=== PATIENT | female | born 1980 | race American Indian/Alaskan Native ===

== ENCOUNTER 2016-10-04 10:41 | Inpatient (IN) | payer OTHER ==
--- NOTE | 2016-10-04 10:56 | Emergency Department Report ---
Chief Complaint: Dizziness Stated Complaint: DIZZINESS Time Seen by Provider: 10/04/16 10:55 - HPI History of Present Illness: Patient here complaining of dizziness for 1 week. She says she's having headache to the front of her head and has a history of high blood pressure. She said the headache feels like stabbing pain she is also having mid chest pain that feels tight and pain is 8 out of 10. She reports that she is having slight blurred vision. She says headache is 9 out of 10 and is constant since yesterday. Denies any nausea vomiting. She said that she does not have a primary care physician. Patient is on labetalol and nifedipine and she says she took both medication this morning. History of asthma and high blood pressure. - ROS Review of Systems: All systems are negative unless stated in HPI above - Exam Vital Signs: Vital Signs 10/04/16 10:44 Temperature 98.4 F Pulse Rate 86 Respiratory 20 Rate Blood Pressure 232/148 O2 Sat by Pulse 100 Oximetry Physical Exam: General: This is a 36-year-old female . Morbidly obese . nontoxic in appearance. Mini-Neuro: GCS of 15, speech is clear and fluid. Negative pronator drift, negative Romberg. Patient alert and oriented 3. No facial drooping noted. CV:BP Pressure is 232/148. regular rate and rhythm. S1-S2. MSE screening note: Focused history and physical exam performed. Due to findings the following was ordered:see [facility] ED Medical Decision Making - Medical Decision Making Medical decision making: Patient seen by provider in triage area. Appropriate protocol activated and patient to main ED to be seen by physician. ED Disposition for MSE Condition: Stable
[2016-10-04] MEDS ORDERED: CATAPRES PO ONE (11:04)
[2016-10-04 11:37] LABS: Basophils % (Auto) 0.7 % (0.0-1.8); Eosinophils % (Auto) 1.7 % (0.0-4.3); Hematocrit 36.5 % (30.3-42.9); Hemoglobin 11.6 gm/dl (10.1-14.3); Mean Corpuscular HGB Conc 32 % (30-34); Mean Corpuscular Volume 79 fl (79-97); Platelet Count 320 K/mm3 (140-440); Red Blood Count 4.65 M/mm3 (3.65-5.03); Red Cell Distribution Width 15.1 % (13.2-15.2); White Blood Count 4.7 K/mm3 (4.5-11.0)
[2016-10-04 11:48] LABS: Partial Thromboplastin Time 29.7 Sec. (24.2-36.6)
[2016-10-04 11:52] LABS: Creatine Kinase MB 2.9 ng/mL (0.0-4.0)
[2016-10-04 11:53] LABS: Creatine Kinase 193 units/L (30-135)
[2016-10-04 11:54] LABS: Alanine Aminotransferase 12 units/L (7-56); Albumin 3.9 g/dL (3.9-5); Albumin/Globulin Ratio 1.1 %; Alkaline Phosphatase 89 units/L (35-129); Anion Gap 17 mmol/L; Bilirubin,Total 0.3 mg/dL (0.1-1.2); Blood Urea Nitrogen 14 mg/dL (7-17); Calcium 8.7 mg/dL (8.4-10.2); Carbon Dioxide 26 mmol/L (22-30); Chloride 100.9 mmol/L (98-107); Glucose 100 mg/dL (65-100); Potassium 4.1 mmol/L (3.6-5.0); Sodium 140 mmol/L (137-145); Total Protein 7.6 g/dL (6.3-8.2)
[2016-10-04 12:00] LABS: Mean Corpuscular Hemoglobin 25 pg (28-32)
--- NOTE | 2016-10-04 12:21 | Cat Scan Report ---
CT HEAD WITHOUT CONTRAST: HISTORY: Headache. Serial contiguous axial images were obtained through the cranium. Intravenous contrast material was not administered. The ventricles are normal in size and appearance. There is no mass effect or midline shift. No areas of abnormally increased or decreased attenuation are seen. No mass lesion is seen. The mastoid air cells and visualized portions of the sinuses are normal. IMPRESSION: Cranial CT scan within normal limits.
--- NOTE | 2016-10-04 12:21 | XRay Report ---
CHEST XRAY, 2 VIEWS: History: Chest pain. Findings: Two views of the chest demonstrate the mediastinal contour to be of normal size and shape. The heart is enlarged. The lungs are clear and fully expanded, and the soft tissues and bony structures are normal. IMPRESSION: Mild cardiomegaly. Lungs clear.
--- NOTE | 2016-10-04 13:00 | Emergency Department Report ---
ED General Adult HPI - General Chief complaint: Dizziness Stated complaint: DIZZINESS Time Seen by Provider: 10/04/16 10:55 Source: patient Mode of arrival: Ambulatory Limitations: No Limitations - History of Present Illness Initial comments: Patient complained of vague dizziness but not vertigo for one week. She states that she is compliant with her medication for hypertension. She does not complain of any focal weakness or numbness. Apparently she complained of some chest pain to the primary nurse on secondary assessment. However she denied this with me. She is not complaining of shortness of breath either.denies any focal weakness or numbness.she states the chest pain that she had was primarily on exertion. It is not currently present. She also has had some dyspnea on exertion. The patient was admitted to this facility under similar circumstances. She had a Walter protocol which was negative. She did not have a nuclear perfusion study. -: week(s) Location: back Radiation: non-radiation Quality: aching Consistency: intermittent, now resolved Improves with: none Worsens with: none Associated Symptoms: shortness of breath Treatments Prior to Arrival: none - Related Data Previous Rx's Medication Instructions Recorded Last Taken Type Labetalol [Normodyne TAB] 400 mg PO TID #60 tablet 12/25/15 Unknown Rx NIFEdipine XL [Procardia Xl] 60 mg PO QDAY #30 tablet 12/25/15 Unknown Rx Allergies Allergy/AdvReac Type Severity Reaction Status Date / Time pineapple Allergy Swelling Verified 05/26/16 07:53 salmon Allergy Swelling Uncoded 05/26/16 07:53 ED Review of Systems ROS: Stated complaint: DIZZINESS Other details as noted in HPI Constitutional: denies: chills, fever Eyes: denies: eye pain, eye discharge, vision change ENT: denies: ear pain, throat pain Respiratory: SOB with exertion. denies: cough, shortness of breath, wheezing Cardiovascular: chest pain. denies: palpitations Endocrine: no symptoms reported Gastrointestinal: denies: abdominal pain, nausea, diarrhea Genitourinary: denies: urgency, dysuria, discharge Musculoskeletal: denies: back pain, joint swelling, arthralgia Skin: denies: rash, lesions Neurological: denies: headache, weakness, paresthesias Psychiatric: denies: anxiety, depression Hematological/Lymphatic: denies: easy bleeding, easy bruising ED Past Medical Hx - Past Medical History Previous Medical History?: Yes Hx Hypertension: Yes Hx Asthma: Yes - Surgical History Past Surgical History?: Yes Additional Surgical History: D&C - Social History Smoking Status: Never Smoker Substance Use Type: None - Medications Home Medications: Home Medications Medication Instructions Recorded Confirmed Last Taken Type Labetalol [Normodyne TAB] 400 mg PO TID #60 tablet 12/25/15 10/04/16 Unknown Rx NIFEdipine XL [Procardia Xl] 60 mg PO QDAY #30 tablet 12/25/15 10/04/16 Unknown Rx ED Physical Exam - General Limitations: No Limitations General appearance: alert, in no apparent distress - Head Head exam: Present: atraumatic, normocephalic - Eye Eye exam: Present: normal appearance, PERRL, EOMI. Absent: scleral icterus - ENT ENT exam: Present: mucous membranes moist - Neck Neck exam: Present: normal inspection - Respiratory Respiratory exam: Present: normal lung sounds bilaterally. Absent: respiratory distress - Cardiovascular Cardiovascular Exam: Present: regular rate, normal rhythm. Absent: systolic murmur, diastolic murmur, rubs, gallop - GI/Abdominal GI/Abdominal exam: Present: soft, normal bowel sounds. Absent: distended, tenderness, guarding, rebound, rigid - Extremities Exam Extremities exam: Present: normal inspection - Back Exam Back exam: Present: normal inspection - Neurological Exam Neurological exam: Present: alert, oriented X3, CN II-XII intact, normal gait, other (ields were equal by confrontation cerebellar testing was normal.). Absent: motor sensory deficit - Psychiatric Psychiatric exam: Present: normal affect, normal mood - Skin Skin exam: Present: warm, dry, intact, normal color. Absent: rash ED Course Vital Signs 10/04/16 10/04/16 10/04/16 10:44 11:11 12:22 Temperature 98.4 F Pulse Rate 86 86 Respiratory 20 Rate Blood Pressure 232/148 232/140 Blood Pressure [Left] O2 Sat by Pulse 100 98 Oximetry 10/04/16 10/04/16 10/04/16 12:32 12:33 13:01 Temperature Pulse Rate 69 68 Respiratory 18 18 20 Rate Blood Pressure 174/111 Blood Pressure 183/119 [Left] O2 Sat by Pulse 97 97 96 Oximetry 10/04/16 10/04/16 10/04/16 13:13 14:01 14:07 Temperature Pulse Rate 64 70 Respiratory 20 15 Rate Blood Pressure 180/110 175/99 175/99 Blood Pressure [Left] O2 Sat by Pulse 94 100 Oximetry 10/04/16 10/04/16 10/04/16 14:11 15:01 15:55 Temperature Pulse Rate 64 56 L Respiratory 19 Rate Blood Pressure 175/99 169/88 169/88 Blood Pressure [Left] O2 Sat by Pulse 97 98 Oximetry 10/04/16 10/04/16 10/04/16 16:01 18:59 19:00 Temperature Pulse Rate Respiratory Rate Blood Pressure 166/100 166/100 180/110 Blood Pressure [Left] O2 Sat by Pulse 99 98 99 Oximetry ED Medical Decision Making - Lab Data Result diagrams: 10/04/16 11:23 10/04/16 11:23 - EKG Data -: EKG Interpreted by Me EKG shows normal: sinus rhythm, axis, intervals, QRS complexes - EKG Data Interpretation: other (somewhat prolnged QT SUKH) - Radiology Data Radiology results: report reviewed ( x-ray mild cardiomegaly CT the head no acute intracranial process) Critical care attestation.: If time is entered above; I have spent that time in minutes in the direct care of this critically ill patient, excluding procedure time. ED Disposition Clinical Impression: Accelerated hypertension, Chest pain Disposition: OP ADMITTED IP TO THIS HOSP Is pt being admited?: Yes Does the pt Need Aspirin: Yes Condition: Stable Time of Disposition: 20:24
[2016-10-04] MEDS ORDERED: ASPIRIN PO ONE (13:42)
[2016-10-04] MEDS ORDERED: NITRO-BID 2% TP ONE (13:42)
[2016-10-04] MEDS ORDERED: NITROSTAT SL PRN (14:41)
[2016-10-04] MEDS ORDERED: SODIUM CHLORIDE FLUSH SYRINGE 10 ML IV PRN (14:41)
[2016-10-04] MEDS ORDERED: BABY ASPIRIN PO STA (14:50)
[2016-10-04] MEDS ORDERED: D5/0.45NS 1,000 ML IV SCH (15:00)
[2016-10-04 16:25] LABS: Creatine Kinase MB 2.7 ng/mL (0.0-4.0)
[2016-10-04 16:26] LABS: Alanine Aminotransferase 12 units/L (7-56); Albumin 3.7 g/dL (3.9-5); Albumin/Globulin Ratio 1.1 %; Alkaline Phosphatase 84 units/L (35-129); BUN/Creatinine Ratio 15.55; Bilirubin,Total 0.2 mg/dL (0.1-1.2); Blood Urea Nitrogen 14 mg/dL (7-17); Calcium 8.7 mg/dL (8.4-10.2); Carbon Dioxide 25 mmol/L (22-30); Chloride 100.2 mmol/L (98-107); Creatine Kinase 173 units/L (30-135); Glucose 94 mg/dL (65-100); Potassium 3.9 mmol/L (3.6-5.0); Sodium 138 mmol/L (137-145); Total Protein 7.2 g/dL (6.3-8.2)
[2016-10-04 16:33] LABS: Anion Gap 17 mmol/L
[2016-10-04] MEDS: LOVENOX SUB-Q SCH (16:37)
[2016-10-04] MEDS: PROCARDIA XL PO SCH (16:37)
[2016-10-04 18:36] LABS: Creatine Kinase 157 units/L (30-135)
[2016-10-04 19:44] LABS: Creatine Kinase MB 2.6 ng/mL (0.0-4.0)
[2016-10-04] MEDS: NORMODYNE PO SCH (20:14)
[2016-10-04 20:46] LABS: Bilirubin,Urine NEG (Negative); Blood,Urine LG (Negative); Ketones,Urine NEG (Negative); Leukocyte Esterase,Urine NEG (Negative); Nitrite,Urine NEG (Negative); Urobilinogen,Urine < 2.0 mg/dL (<2.0)
[2016-10-04 20:53] LABS: RBC,Urine > 182.0 /HPF (0.0-6.0)
[2016-10-04] MEDS: MORPHINE IV PRN (22:05)
--- NOTE | 2016-10-04 23:38 | History and Physical Report ---
History of Present Illness Date of examination: 10/04/16 Date of admission: 10/04/16 14:35 Chief complaint: Chest pain, hypertension. History of present illness: Patient is a 36-year-old lady who has a history of hypertension and walked up in this was before chest pain about 3 months ago presented with retrosternal chest pain. No telemetry. Also normal. Progressively got worse for which she came to the emergency department. Repeat chest x-ray was unremarkable for any acute event. CT scan of the lungs was unremarkable for any acute event. Past History Past Medical History: hypertension, other Past Surgical History: denies: bowel surgery, Other Social history: single, smoking (quit smoking 2 days ago. She does smokes 1 year pack.) Family history: CAD, hypertension Medications and Allergies Allergies Allergy/AdvReac Type Severity Reaction Status Date / Time pineapple Allergy Swelling Verified 05/26/16 07:53 salmon Allergy Swelling Uncoded 05/26/16 07:53 Home Medications Medication Instructions Recorded Confirmed Last Taken Type Labetalol [Normodyne TAB] 400 mg PO TID #60 tablet 12/25/15 10/04/16 Unknown Rx NIFEdipine XL [Procardia Xl] 60 mg PO QDAY #30 tablet 12/25/15 10/04/16 Unknown Rx Active Meds: Active Medications Enoxaparin Sodium (Lovenox) 40 mg SUB-Q QDAY [facility] Last Admin: 10/04/16 16:37 Dose: 40 mg Dextrose/Sodium Chloride (D5/0.45ns) 1,000 mls @ 125 mls/hr IV DIRECT [facility] Labetalol HCl (Normodyne) 400 mg PO TID [facility] Morphine Sulfate (Morphine) 2 mg IV Q4H PRN PRN Reason: Pain, Moderate (4-6) Nifedipine (Procardia Xl) 60 mg PO QDAY [facility] Last Admin: 10/04/16 16:37 Dose: 60 mg Nitroglycerin (Nitrostat) 0.4 mg SL Q5M PRN PRN Reason: Chest Pain Sodium Chloride (Sodium Chloride Flush Syringe 10 Ml) 10 ml IV PRN PRN PRN Reason: LINE FLUSH Review of Systems Constitutional: no anorexia, no fatigue, no weakness Ears, nose, mouth and throat: no ear pain, no ear discharge, no tinnitis, no decreased hearing Cardiovascular: chest pain, no palpitations, no lightheadedness, no shortness of breath Respiratory: no cough, no cough with sputum, no excessive sputum, no hemoptysis Exam - Constitutional Vitals: Temp Pulse Resp BP Pulse Ox 98.4 F 56 L 19 180/110 100 10/04/16 10:44 10/04/16 15:01 10/04/16 15:01 10/04/16 19:00 10/04/16 22:27 General appearance: Present: no acute distress, mild distress - EENT Eyes: Present: PERRL, EOM intact ENT: hearing intact - Neck Neck: Present: supple - Respiratory Respiratory: bilateral: CTA - Cardiovascular Rhythm: regular Heart Sounds: Present: S1 & S2 - Extremities Extremities: no ischemia, pulses intact - Abdominal General gastrointestinal: Present: soft, non-tender, non-distended - Integumentary Integumentary: Absent: clear - Psychiatric Psychiatric: no appropriate mood/affect - Neurologic Neurologic: no CNII-XII intact Results - Labs CBC & Chem 7: 10/04/16 11:23 10/04/16 11:23 Labs: Abnormal lab results 10/04/16 10/04/16 Range/Units 17:43 19:00 Total Creatine Kinase 157 H (30-135) units/L Urine WBC (Auto) 16.0 H (0.0-6.0) /HPF Assessment and Plan - Patient Problems (1) Chest pain Diagnosis Date: 10/04/16 Current Visit: Yes Status: Acute Qualifiers: Chest pain type: chest pain due to myocardial ischemia Qualified Code(s): I20.9 - Angina pectoris, unspecified Plan to address problem: Commence patient on aspirin, oxygen, morphine,atorvastatin, Nuclear scan (2) Accelerated hypertension Diagnosis Date: 10/04/16 Current Visit: Yes Status: Acute Plan to address problem: Optimize blood pressure control with is beta matthew . Associated on compliance (3) Cardiomegaly Diagnosis Date: 10/04/16 Current Visit: Yes Status: Acute (4) Noncompliance Diagnosis Date: 10/04/16 Current Visit: No Status: Acute Plan to address problem: Counseling noncompliance done
[2016-10-05 00:38] LABS: Creatine Kinase MB 2.1 ng/mL (0.0-4.0)
[2016-10-05 00:39] LABS: Creatine Kinase 132 units/L (30-135)
--- NOTE | 2016-10-05 03:32 | Admit Criteria Form ---
Admission Criteria Documentation: CHEST PAIN Clinical Indications for Admission to Inpatient Care (Place 'X' for any and all applicable criteria): Admission is indicated for chest pain and ANY ONE of the following(1)(2)(3)(4)(5 ): [ ]I. Angina with acute coronary syndrome (Also use Myocardial Infarction or Angina guideline) [ ]II. Hemodynamic instability [ ]III. Angina needing acute intervention as indicated by ALL of the following( 11)(12): [ ]a) Unstable angina is present as indicated by angina that is ANY ONE of the following: [ ]i) New onset [ ]ii) Nocturnal [ ]iii) Prolonged at rest [ ]iv) Progressive [ ]b) Angina warrants acute intervention as indicated by ANY ONE of the following: [ ]i) Recurrent angina (e.g, not responding as previously to treatment) [ ]ii) Angina at rest or with low-level activities despite initial medical therapy [ ]iii) New or presumably new ST-segment depression on ECG [ ]iv) Signs or symptoms of heart failure (eg, dyspnea, pulmonary edema) [ ]v) New or worsening mitral regurgitation [ ]vi) Hemodynamic instability [ ]vii) Dangerous arrhythmia (eg, sustained ventricular tachycardia) [ ]viii) History of percutaneous coronary intervention within 6 months [ ]ix) History of coronary artery bypass graft surgery [ ]x) PERNELL risk score of 2 or greater[A] [ ]xi) History of Diabetes(14) [ ]xii) High-risk cardiac ischemia findings on noninvasive testing (e.g, echocardiogram, treadmill testing, nuclear scan) [ ]xiii) Chronic renal insufficiency (ie, estimated GFR less than 60 mL/min/1.732m) [ ]xiv) Left ventricular ejection fraction less than 40% [ ]IV. Evidence of SD (eg, cardiac biomarkers positive, ST-segment elevation on ECG) also use Myocardial Infarction Criteria Form. [ ]V. Pulmonary edema [ ]. Respiratory distress [ ]VII. Chest pain indicative of serious diagnosis other than coronary artery disease (eg, aortic dissection) [ ]VIII. Contraindications and/or Inappropriate clinical situations for Observational Care in patients with Chest Pain, when ANY ONE of the following is required: [ ]a) Patient with risk factor for pulmonary embolism, acute coronary syndrome and myocardial infarction (18) [ ]b) Patient with Pulmonary embolism require an average LOS of 4.3 days, therefore emergency department observation management is inappropriate 18,23 [ ]c) Painful condition/s in the elderly, have the highest rate of recidivism after emergency department observation management (10.8%) 20,21,22 [ ]d) Elevated cardiac biomarker requires intensive and exhaustive care (19) [ X]IX. General contraindications and/or Inappropriate clinical situations for Observational Care in patients with Chest Pain, when ANY ONE of the following is required: [ ]a) Prediction of prolongation of LOS based on ANY ONE of the following may be considered as a contraindication for observational care 2, 3, 4, 5, 6, 7, 8, 9, 10, 11 [ ]i) Age > 65 yrs. [ ]ii) Patient arriving by ambulance [ ]iii) Patient with high acuity [ ]iv) Patient requiring vital sign monitoring [ ]v) Patient on IV medication [ X]b) Systolic blood pressures 180mmHg 3,12 [ ]c) Patient with altered mental status including delirium and other alteration of consciousness, (3) [ ]d) Patient whose discharge disposition will be to a care home home or rehabilitation home should not be managed in Emergency Department Observation Unit. CMS rule requires 3 days hospital stay before such placement. 3,13 [ ]e) Patient with failure to thrive due to broad array of etiologies 3,16,17 [ ]f) Inability to ambulate 3,14 Extended stay beyond goal length of stay may be needed for (1)(28): [ ]a) Specific condition diagnosed after evaluation (eg, pulmonary embolism, aortic dissection) [ ]b) Unstable angina [ ]c) Continued suspicion of acute coronary syndrome with inability to complete needed cardiac evaluation (eg, patient clinically unable to undergo stress testing) [ ]d) Myocardial infarction (Contents from ANGINA and CHEST PAIN clinical indications for admission to inpatient care have been integrated in this form) The original [employer] [facility] [facility] content created by [employer] has been revised. The portions of the content which have been revised are identified through the use of italic text or in bold, and [employer] [facility] has neither reviewed nor approved the modified material. All other unmodified content is copyright [employer] [facility]. Please see references footnoted in the original [employer] [facility] edition 2016 Admission Criteria Met: Yes
[2016-10-05] MEDS: NORMODYNE PO SCH ×2 (08:14→17:11)
[2016-10-05] MEDS: MORPHINE IV PRN ×3 (08:14→17:11)
[2016-10-05] MEDS ORDERED: LEXISCAN IV ONE (09:42)
[2016-10-05] MEDS ORDERED: ASPIRIN PO SCH (10:00)
[2016-10-05] MEDS ORDERED: COZAAR PO SCH (10:00)
[2016-10-05] MEDS: LOVENOX SUB-Q SCH (12:03)
[2016-10-05] MEDS: PROCARDIA XL PO SCH (12:04)
[2016-10-05 14:42] VITALS: BP 171/87
[2016-10-05 16:04] LABS: Basophils % (Auto) 0.3 % (0.0-1.8); Hematocrit 34.2 % (30.3-42.9); Hemoglobin 11.2 gm/dl (10.1-14.3); Mean Corpuscular HGB Conc 33 % (30-34); Mean Corpuscular Volume 78 fl (79-97); Platelet Count 321 K/mm3 (140-440); Red Cell Distribution Width 14.9 % (13.2-15.2); White Blood Count 4.3 K/mm3 (4.5-11.0)
[2016-10-05 16:05] LABS: Mean Corpuscular Hemoglobin 26 pg (28-32)
[2016-10-05 16:23] LABS: Alanine Aminotransferase 11 units/L (7-56); Albumin 3.4 g/dL (3.9-5); Alkaline Phosphatase 78 units/L (35-129); BUN/Creatinine Ratio 11.11; Bilirubin,Total 0.2 mg/dL (0.1-1.2); Blood Urea Nitrogen 10 mg/dL (7-17); Calcium 8.5 mg/dL (8.4-10.2); Carbon Dioxide 27 mmol/L (22-30); Chloride 101.7 mmol/L (98-107); Glucose 107 mg/dL (65-100); Potassium 3.4 mmol/L (3.6-5.0); Sodium 140 mmol/L (137-145); Total Protein 6.8 g/dL (6.3-8.2)
[2016-10-05 16:24] LABS: Anion Gap 15 mmol/L
--- NOTE | 2016-10-05 17:01 | Discharge Summary ---
Providers - Providers Date of Admission: 10/04/16 14:35 Attending physician: ALLYSSA SIN MD 10/04/16 Consult to Cardiac Rehabilitation [CONS] Routine Reason For Exam: Phase I Primary care physician: CUCO SOLO MD Hospitalization Condition: Stable Hospital course: 36-year-old woman who presented with chest pain, she was found to have follicular. Hypertension, medications are optimized. Regards to chest pain she went on to have stress test was negative. Patient was counseled about low sodium diet and compliance with blood pressure medications and prescriptions for them. Discharge diagnosis 1. Chest pain due to accelerated hypertension 2. Hypertensive urgency. Disposition: DISCHARGED TO HOME OR SELFCARE Time spent for discharge: 35 minutes Core Measure Documentation - Palliative Care Palliative Care/ Comfort Measures: Not Applicable - Core Measures Any of the following diagnoses?: none Exam - Constitutional Vitals: Temp Pulse Resp BP Pulse Ox 97.7 F 81 18 156/89 100 10/05/16 13:43 10/05/16 13:43 10/05/16 13:43 10/05/16 13:43 10/05/16 13:43 General appearance: Present: no acute distress, well-nourished - EENT Eyes: Present: PERRL ENT: hearing intact, clear oral mucosa - Neck Neck: Present: supple, normal ROM - Respiratory Respiratory effort: normal Respiratory: bilateral: CTA - Cardiovascular Heart Sounds: Present: S1 & S2. Absent: rub, click - Extremities Extremities: pulses symmetrical, No edema Peripheral Pulses: within normal limits - Abdominal General gastrointestinal: Present: soft, non-tender, non-distended, normal bowel sounds Female genitourinary: Present: normal - Integumentary Integumentary: Present: clear, warm, dry - Musculoskeletal Musculoskeletal: gait normal, strength equal bilaterally - Psychiatric Psychiatric: appropriate mood/affect, intact judgment & insight - Neurologic Neurologic: CNII-XII intact, moves all extremities Plan Activity: no restrictions Follow up with: PRIMARY CAREMD [Primary Care Provider] - 7 Days Prescriptions: Losartan [Cozaar] 100 mg PO QDAY #120 tablet Hydrochlorothiazide [HCTZ] 25 mg PO QDAY #30 tablet Labetalol [Normodyne TAB] 400 mg PO TID #180 tablet NIFEdipine XL [Procardia Xl] 60 mg PO QDAY #30 tablet
--- NOTE | 2016-10-06 03:27 | Treadmill Report ---
MYOCARDIAL PERFUSION IMAGING STUDY Resting perfusion images revealed heterogeneous radioisotope activity. This is probably due to her body habitus. On post-Lexiscan images, again there was heterogeneous radioisotope activity without any perfusion defects. Gated scan revealed ejection fraction of 53. There is no transient ischemic dilatation. IMPRESSION: This test is negative for ischemia. JOB# [id number] ARLIN/SERAFIN
== END 2016-10-05 18:00 | disposition home or self-care (01) | DRG 305 ==
LOC: ED 10:41 → 4A 14:35
PROVIDERS: ADMIT Family Medicine; ATTEND Internal Medicine
PROC: 4A02XM4 Measurement of Cardiac Total Activity, External Approach (ICD-10-PCS; principal; 2016-10-04)
DX: I10 Essential (primary) hypertension (principal); R07.9 Chest pain, unspecified; I51.7 Cardiomegaly; F17.200 Nicotine dependence, unspecified, uncomplicated; I16.0 Hypertensive urgency; Z91.018 Allergy to other foods; Z91.19 Patient's noncompliance with other medical treatment and regimen; Z82.49 Family history of ischemic heart disease and other diseases of the circulatory system
CPT/HCPCS: 36415; 70450; 71020; 78452; 80053; 80061; 81001; 82550; 82553; 84484; 84703; 85025; 85610; 85730; 93005; 93010; 93017; 96372; A9502; J1650; J2270; J2785

== ENCOUNTER 2016-12-25 22:08 | Emergency (ER) | payer SELFPAY ==
[2016-12-25] MEDS ORDERED: CATAPRES PO ONE (22:51)
[2016-12-26 00:12] LABS: Basophils % (Auto) 0.5 % (0.0-1.8); Eosinophils % (Auto) 2.3 % (0.0-4.3); Hematocrit 36.9 % (30.3-42.9); Hemoglobin 12.2 gm/dl (10.1-14.3); Mean Corpuscular HGB Conc 33 % (30-34); Mean Corpuscular Volume 77 fl (79-97); Platelet Count 301 K/mm3 (140-440); Red Blood Count 4.78 M/mm3 (3.65-5.03); Red Cell Distribution Width 16.7 % (13.2-15.2); White Blood Count 6.3 K/mm3 (4.5-11.0)
[2016-12-26 00:13] LABS: Mean Corpuscular Hemoglobin 26 pg (28-32)
[2016-12-26 00:20] LABS: Bilirubin,Urine NEG (Negative); Blood,Urine NEG (Negative); Ketones,Urine NEG (Negative); Leukocyte Esterase,Urine NEG (Negative); Mucus,Urine FEW /HPF; Nitrite,Urine NEG (Negative); Protein,Urine <15 mg/dL mg/dL (Negative); Urobilinogen,Urine < 2.0 mg/dL (<2.0)
[2016-12-26 00:25] LABS: Alanine Aminotransferase 11 units/L (7-56); Albumin 4.2 g/dL (3.9-5); Albumin/Globulin Ratio 1.1 %; Alkaline Phosphatase 92 units/L (35-129); Anion Gap 19 mmol/L; Bilirubin,Total 0.4 mg/dL (0.1-1.2); Blood Urea Nitrogen 12 mg/dL (7-17); Calcium 9.3 mg/dL (8.4-10.2); Carbon Dioxide 25 mmol/L (22-30); Chloride 103.6 mmol/L (98-107); Glucose 91 mg/dL (65-100); Sodium 144 mmol/L (137-145); Total Protein 8.1 g/dL (6.3-8.2)
[2016-12-26] MEDS ORDERED: NACL 0.9% 1000 ML 1,000 ML IV ONE (10:22)
[2016-12-26] MEDS ORDERED: REGLAN IV ONE (10:22)
[2016-12-26] MEDS ORDERED: TORADOL IV ONE (10:22)
[2016-12-26] MEDS ORDERED: BENADRYL IV ONE (10:22)
--- NOTE | 2016-12-26 10:23 | Emergency Department Report ---
ED General Adult HPI - General Chief complaint: Abdominal Pain Stated complaint: HEADACHE, RT SIDE PAIN Time Seen by Provider: 12/26/16 10:09 Source: patient, RN notes reviewed, old records reviewed Mode of arrival: Ambulatory Limitations: No Limitations - History of Present Illness Initial comments: This is a 36-year-old female. I have evaluated her in the past. She has a past medical history of hypertension. The patient presents to the ER with 2 complaints. The patient's first complaint is abdominal pain. It is right lower quadrant. It is intermittent. It has been going on for the past few days. No vomiting or chest pain. No diaphoresis. No irritative or obstructive urinary symptoms. The patient is sexually active with one male partner, no history of dyspareunia, does not use condoms. Pain increases with palpation, decreases with rest, and does not radiate anywhere. The patient's next complaint is headache. The headache is frontal, bitemporal, and right-sided occipital. It is throbbing, constant, and has been going on for the past 3-4 days. The headache is not sudden or thunderclap in nature. It did not reach maximal intensity within an hour. It is not the worse headache of her life. She reports a worse headache last year. There is no midline neck pain, there is no trauma, there is no recent chiropractic manipulation. The headache has no relieving factors, and it worsens with exposure to light and loud sounds. -: Gradual Location: head, abdomen Radiation: non-radiation Severity scale (0 -10): 9 Quality: aching Consistency: intermittent Improves with: other (per hpi) Worsens with: other (per hpi) Associated Symptoms: headaches - Related Data Previous Rx's Medication Instructions Recorded Last Taken Type Hydrochlorothiazide [HCTZ] 25 mg PO QDAY #30 tablet 10/05/16 Unknown Rx Labetalol [Normodyne TAB] 400 mg PO TID #180 tablet 10/05/16 Unknown Rx Losartan [Cozaar] 100 mg PO QDAY #120 tablet 10/05/16 Unknown Rx NIFEdipine XL [Procardia Xl] 60 mg PO QDAY #30 tablet 10/05/16 Unknown Rx Ketorolac [Toradol] 10 mg PO Q6H PRN #20 tablet 12/26/16 Unknown Rx Ondansetron [Zofran Odt] 4 mg PO QID PRN #20 tab.rapdis 12/26/16 Unknown Rx Allergies Allergy/AdvReac Type Severity Reaction Status Date / Time pineapple Allergy Swelling Verified 05/26/16 07:53 salmon Allergy Swelling Uncoded 05/26/16 07:53 ED Review of Systems ROS: Stated complaint: HEADACHE, RT SIDE PAIN Other details as noted in HPI Constitutional: denies: malaise Eyes: denies: vision change ENT: denies: epistaxis Respiratory: denies: orthopnea Cardiovascular: denies: chest pain Gastrointestinal: abdominal pain Genitourinary: denies: urgency, dysuria Musculoskeletal: denies: back pain Skin: denies: rash, lesions Neurological: headache Psychiatric: anxiety ED Past Medical Hx - Past Medical History Previous Medical History?: Yes Hx Hypertension: Yes Hx Congestive Heart Failure: No Hx Diabetes: No Hx Asthma: Yes Hx COPD: No Hx HIV: No - Surgical History Past Surgical History?: Yes Additional Surgical History: D&C - Social History Smoking Status: Never Smoker Substance Use Type: None - Medications Home Medications: Home Medications Medication Instructions Recorded Confirmed Last Taken Type Hydrochlorothiazide [HCTZ] 25 mg PO QDAY #30 tablet 10/05/16 Unknown Rx Labetalol [Normodyne TAB] 400 mg PO TID #180 tablet 10/05/16 Unknown Rx Losartan [Cozaar] 100 mg PO QDAY #120 tablet 10/05/16 Unknown Rx NIFEdipine XL [Procardia Xl] 60 mg PO QDAY #30 tablet 10/05/16 Unknown Rx Ketorolac [Toradol] 10 mg PO Q6H PRN #20 tablet 12/26/16 Unknown Rx Ondansetron [Zofran Odt] 4 mg PO QID PRN #20 tab.rapdis 12/26/16 Unknown Rx ED Physical Exam - General Limitations: No Limitations General appearance: alert, in no apparent distress - Head Head exam: Present: atraumatic, normocephalic - Eye Eye exam: Present: normal appearance, EOMI. Absent: nystagmus - ENT ENT exam: Present: normal exam, normal orophraynx, mucous membranes moist, normal external ear exam - Neck Neck exam: Present: normal inspection, full ROM. Absent: tenderness, meningismus - Respiratory Respiratory exam: Present: normal lung sounds bilaterally. Absent: respiratory distress, wheezes, rales, rhonchi, stridor, decreased breath sounds - Cardiovascular Cardiovascular Exam: Present: regular rate, normal rhythm, normal heart sounds. Absent: bradycardia, tachycardia, irregular rhythm, systolic murmur, diastolic murmur, rubs, gallop - GI/Abdominal GI/Abdominal exam: Present: soft, tenderness, normal bowel sounds, other (there is suprapubic and right lower quadrant tenderness, this is mild, there is no rebound, guarding or peritoneal signs.). Absent: distended, guarding, pulsatile mass - Extremities Exam Extremities exam: Present: normal inspection, full ROM, normal capillary refill. Absent: tenderness, pedal edema, joint swelling, calf tenderness - Back Exam Back exam: Present: normal inspection, full ROM. Absent: tenderness, CVA tenderness (R), CVA tenderness (L), muscle spasm, paraspinal tenderness, vertebral tenderness - Neurological Exam Neurological exam: Present: alert, oriented X3, normal gait ( Normal gait. Normal tandem gait. Negative Romberg. Normal [id number]. Negative pass pointing. Negative pronator drift.), other (Extraocular movements intact. Tongue midline. No facial droop. Facial sensation intact to light touch in the V1, V2, V3 distribution bilaterally. 5 and 5 strength in 4 extremities.. Sensation is intact to light touch in 4 extremities.). Absent: motor sensory deficit - Psychiatric Psychiatric exam: Present: normal affect, normal mood - Skin Skin exam: Present: warm, dry, intact, normal color. Absent: rash ED Course Vital Signs 12/25/16 12/25/16 12/26/16 22:38 22:55 04:20 Temperature 98.5 F 98.0 F Pulse Rate 77 77 67 Respiratory 18 20 Rate Blood Pressure 190/123 190/123 153/97 Blood Pressure [Right] O2 Sat by Pulse 100 99 Oximetry 12/26/16 12/26/16 12/26/16 08:24 08:40 09:00 Temperature Pulse Rate 55 L Respiratory 18 Rate Blood Pressure 136/90 Blood Pressure 145/95 [Right] O2 Sat by Pulse 100 100 100 Oximetry 12/26/16 12/26/16 12/26/16 09:30 10:00 12:00 Temperature 98.4 F Pulse Rate 80 Respiratory 16 Rate Blood Pressure 126/84 145/86 Blood Pressure 161/90 [Right] O2 Sat by Pulse 100 100 100 Oximetry 12/26/16 12:50 Temperature Pulse Rate Respiratory Rate Blood Pressure 161/104 Blood Pressure [Right] O2 Sat by Pulse Oximetry - Reevaluation(s) Reevaluation #1: 12/26/16 10:40 Differential diagnosis: Migraine headache, tension headache, cluster headache, muscular headache, spontaneous intracranial hemorrhage, appendicitis, colitis, diverticulitis, renal colic, endometriosis, pelvic inflammatory disease, incidental hypertension Assessment and plan: 36-year-old female with 2 complaints. In terms of the patient's headache, it is not historically consistent with subarachnoid hemorrhage. She has a GCS of 15, NIH score of 0, walks with a steady gait. Has a history of poorly controlled hypertension, and there is no recent chiropractic manipulation. We will obtain a noncontrast CT scan of the brain to exclude spontaneous intracranial hemorrhage, but I doubt that this is the case. In terms of the patient's abdominal pain, she has experience right lower quadrant pain in the past, and I have evaluated her for the same. She will be treated for this symptomatically, we will perform gynecologic examination, and obtain CT scan of the abdomen and pelvis. We will reassess after initial data points. Reevaluation #2: 12/26/16 15:08 Gynecologic examination: Escorted by ER basket assembler filling technician Raine Feldman No cervical motion tenderness, no adnexal tenderness, minimal bleeding. Patient reassessed. Belly soft on repeat examination. CT scan demonstrates chronically dilated appendix, small today than on prior studies, no secondary indication of appendicitis. Nonspecific mesenteric adenitis is suggested. The case is discussed with the general surgeon on-call, Dr. Kenney. He recommends the patient be given nonnarcotic pain medication, and instructions the patient can follow up with him in the office later on this week. This was discussed with the patient, who verbalized understanding. She reports that her headache is improved, that her abdominal pain is improved. She is afebrile with reassuring vital signs with the exception of elevated blood pressure. She will be discharged at this time. Return precautions are reviewed. ED Medical Decision Making - Lab Data Result diagrams: 12/25/16 23:23 12/25/16 23:23 Vital Signs 12/25/16 12/25/16 12/26/16 22:38 22:55 04:20 Temperature 98.5 F 98.0 F Pulse Rate 77 77 67 Respiratory 18 20 Rate Blood Pressure 190/123 190/123 153/97 Blood Pressure [Right] O2 Sat by Pulse 100 99 Oximetry 12/26/16 12/26/16 12/26/16 08:24 08:40 09:00 Temperature Pulse Rate 55 L Respiratory 18 Rate Blood Pressure 136/90 Blood Pressure 145/95 [Right] O2 Sat by Pulse 100 100 100 Oximetry 12/26/16 09:30 Temperature Pulse Rate Respiratory Rate Blood Pressure 126/84 Blood Pressure [Right] O2 Sat by Pulse 100 Oximetry Lab Results 12/25/16 12/25/16 12/25/16 Range/Units 23:23 23:23 23:37 WBC 6.3 (4.5-11.0) K/mm3 RBC 4.78 (3.65-5.03) M/mm3 Hgb 12.2 (10.1-14.3) gm/dl Hct 36.9 (30.3-42.9) % MCV 77 L (79-97) fl MCH 26 L (28-32) pg MCHC 33 (30-34) % RDW 16.7 H (13.2-15.2) % Plt Count 301 (140-440) K/mm3 Lymph % (Auto) 41.8 H (13.4-35.0) % [place] % (Auto) 6.3 (0.0-7.3) % Eos % (Auto) 2.3 (0.0-4.3) % Baso % (Auto) 0.5 (0.0-1.8) % Lymph # 2.6 (1.2-5.4) K/mm3 [place] # 0.4 (0.0-0.8) K/mm3 Eos # 0.1 (0.0-0.4) K/mm3 Baso # 0.0 (0.0-0.1) K/mm3 Seg Neutrophils % 49.1 (40.0-70.0) % Seg Neutrophils # 3.1 (1.8-7.7) K/mm3 Sodium 144 (137-145) mmol/L Potassium 4.0 (3.6-5.0) mmol/L Chloride 103.6 (98-107) mmol/L Carbon Dioxide 25 (22-30) mmol/L Anion Gap 19 mmol/L BUN 12 (7-17) mg/dL Creatinine 1.0 (0.7-1.2) mg/dL Estimated GFR > 60 ml/min BUN/Creatinine Ratio 12.00 % Glucose 91 (65-100) mg/dL Calcium 9.3 (8.4-10.2) mg/dL Total Bilirubin 0.4 (0.1-1.2) mg/dL AST 15 (5-40) units/L ALT 11 (7-56) units/L Alkaline Phosphatase 92 (35-129) units/L Total Protein 8.1 (6.3-8.2) g/dL Albumin 4.2 (3.9-5) g/dL Albumin/Globulin Ratio 1.1 % Urine Color Yellow (Yellow) Urine Turbidity Clear (Clear) Urine pH 5.0 (5.0-7.0) Ur Specific [place] 1.012 (1.003-1.030) Urine Protein <15 mg/dl (Negative) mg/dL Urine Glucose (UA) Neg (Negative) mg/dL Urine Ketones Neg (Negative) mg/dL Urine Blood Neg (Negative) Urine Nitrite Neg (Negative) Ur Reducing Substances Not Reportable Urine Bilirubin Neg (Negative) Urine Ictotest Not Reportable Urine Urobilinogen < 2.0 (<2.0) mg/dL Ur Leukocyte Esterase Neg (Negative) Urine WBC (Auto) 1.0 (0.0-6.0) /HPF Urine RBC (Auto) 1.0 (0.0-6.0) /HPF U Epithel Cells (Auto) 1.0 (0-13.0) /HPF Urine Mucus Few /HPF Urine HCG, Qual Negative (Negative) - Radiology Data Radiology results: report reviewed, image reviewed CT scan of the abdomen and pelvis demonstrates chronically dilated appendix, 7 mm today, on prior study it was 8 mm. Mesenteric adenitis is suggested. Noncontrast CT scan of the brain is negative. Transvaginal ultrasound is negative, fibroid uterus as noted. Critical care attestation.: If time is entered above; I have spent that time in minutes in the direct care of this critically ill patient, excluding procedure time. ED Disposition Clinical Impression: Abdominal pain, Elevated blood pressure Disposition: DISCHARGED TO HOME OR SELFCARE Is pt being admited?: No Does the pt Need Aspirin: No Condition: Stable Instructions: Abdominal Pain (ED) Additional Instructions: Take the pain medication, nausea medication as directed. Cultures were sent today, results will be available in the next 3-5 days. Her primary care doctor contact the medical records department to obtain culture results. Follow-up with the general surgeon, Dr. Kenney, within the next 3-5 days. It is very important to closely follow up with her outpatient surgeon. Nonspecific lymph nodes are noted in the CT scan of the abdomen and pelvis, these appear to be there for a few months. Not following up with the general surgeon may result in an undiagnosed tumor/cancer/malignancy. Return to the ER right away with new pain, worsening pain, migration of pain, fevers or chills, nausea or vomiting, inability to tolerate liquid feeds. Please note that your blood pressure was elevated, and this should be followed up by a primary care doctor within the recommended time frame. I recommend that you follow up with the primary care doctor within the next week to 10 days for elevated blood pressure. Long-term complications of elevated blood pressure included stroke, heart attack, disability, , paralysis, permanent loss of quality of life. Dr. Erum Hobbs is a local primary care doctor. Prescriptions: Ketorolac [Toradol] 10 mg PO Q6H PRN #20 tablet PRN Reason: Pain Ondansetron [Zofran Odt] 4 mg PO QID PRN #20 tab.rapdis PRN Reason: Nausea Referrals: PRIMARY CARE, [Primary Care Provider] - 3-5 Days ERUM HOBBS MD [Staff Physician] - 3-5 Days JULIA KENNEY MD [Staff Physician] - 3-5 Days
[2016-12-26] MEDS ORDERED: NACL ONE (10:39)
--- NOTE | 2016-12-26 11:00 | Cat Scan Report ---
CT scan of head without contrast: History: Headache, hypertension. Findings: Ventricles are normal in size and midline in location. No evidence of acute ischemia, hemorrhage or mass. No extra-axial fluid collection. Normal brainstem and cerebellum. Normal sinuses and mastoid air cells. Deformity of the medial wall of the right orbit probably related to old injury. Impression: No acute intracranial abnormality.
--- NOTE | 2016-12-26 11:36 | Cat Scan Report ---
CT scan abdomen and pelvis with IV contrast: History: Right lower quadrant pain. Findings: Normal lung bases. No pleural pericardial effusion. Normal liver spleen pancreas and gallbladder. Normal adrenals and kidneys and bladder. No free intraperitoneal fluid. No evidence of adenopathy. Gaseous colon with moderate volume stool in colon. The appendix is visualized and measures approximately 7 mm in maximum diameter. There is no periappendiceal stranding or mass or air. There is mesenteric adenitis noted in the adjacent right lower quadrant. The suspected enlargement of right and left ovary. Tubo-ovarian mass cannot be excluded. Impression: 7 mm dilated appendix without jewell- appendiceal inflammation. Mesenteric adenitis right lower quadrant. Suspected tubo-ovarian mass right and left adnexa. Sonographic correlation advised.
[2016-12-26] MEDS ORDERED: BENADRYL ONE (12:41)
[2016-12-26] MEDS ORDERED: REGLAN ONE (12:41)
--- NOTE | 2016-12-26 13:43 | Ultrasound Report ---
Pelvic and transvaginal sonography: History: Pelvic pain. Findings: Uterus measures 12 x 5.3 x 6.1 cm. There is a fundal fibroid noted measuring 2.6 x 2.1 x 2.7 cm subserosal fibroid noted measuring 2.8 x 2.2 x 2.4 cm. Endometrial thickness 5.9 mm. Right ovary 3.5 x 2.4 x 2.6 cm. No mass. Left ovary 2.4 x 2.1 x 3.5 cm. No mass. Impression: Fibroid uterus. No mass at the adnexa.
[2016-12-26 14:21] VITALS: BP 161/104
== END 2016-12-26 15:20 | disposition home or self-care (01) ==
LOC: ED 22:08
DX: R10.31 Right lower quadrant pain (principal); I10 Essential (primary) hypertension; J45.909 Unspecified asthma, uncomplicated
CPT/HCPCS: 36415; 70450; 74177; 76830; 80053; 81001; 81025; 85025; 87591; 93975; 96361; 96374; 96375; 99284; J1200; J2765; J7030; Q9967